=== PATIENT | female | born 1945 | race Caucasian/White ===

== ENCOUNTER 2016-09-06 07:59 | Day surgery (SDC) | payer OTHER ==
[~2016-09-06] VITALS: Ht 152.4 cm; Wt 70.9 kg
[2016-09-06] VITALS (10 sets, daily range): BP systolic 113–134; BP diastolic 63–89; PULSE 73–82; RESP 16–20; TEMP 97.7; O2SAT 92–97
[2016-09-06] MEDS ORDERED: SODIUM CHLOR 0.9% 1000 ML INJ 1,000 ML IV SCH (09:00)
[2016-09-06 09:13] LABS: BASOPHIL # 0.1 TH/MM3 (0-0.2); BASOPHIL % 1.5 % (0.0-2.0); EOSINOPHIL # 0.3 TH/MM3 (0-0.4); EOSINOPHIL % 5.7 % (0.0-4.0); HEMATOCRIT 39.6 % (35.0-46.0); HEMO FLAGS DIFF FINAL; LYMPH % 25.6 % (9.0-44.0); LYMPHOCYTE # 1.4 TH/MM3 (1.0-4.8); MEAN CORPUSCULAR HEMOGLOBIN 32.1 PG (27.0-34.0); MEAN CORPUSCULAR HGB CONC 33.5 % (32.0-36.0); MONO % 10.9 % (0.0-8.0); NEUT % 56.3 % (16.0-70.0); PLATELET COUNT 236 TH/MM3 (150-450); RED BLOOD COUNT 4.12 MIL/MM3 (4.00-5.30); RED CELL DISTRIBUTION WIDTH 13.7 % (11.6-17.2); WHITE BLOOD COUNT 5.4 TH/MM3 (4.0-11.0)
[2016-09-06 09:26] LABS: APTT (PATIENT) 27.3 SEC (24.3-30.1); PROTHROMBIN TIME - PATIENT 10.5 SEC (9.8-11.6)
[2016-09-06 09:34] LABS: BICARBONATE 29.5 MEQ/L (21.0-32.0); POTASSIUM 3.9 MEQ/L (3.5-5.1)
[2016-09-06] MEDS ORDERED: fentaNYL CITRATE 250 MCG/5 ML AMP ONE (10:08)
[2016-09-06] MEDS ORDERED: MIDAZOLAM HCL 5 MG/5 ML VIAL ONE (10:08)
[2016-09-06] MEDS ORDERED: ceFAZolin 2 GM PREMIX 50 ML ONE (10:15)
[2016-09-06] MEDS ORDERED: VERAPAMIL INJ 10 MG/4 ML VIAL ONE (10:29)
[2016-09-06] MEDS ORDERED: HEPARIN SODIUM - IV 10,000 UNITS/10 ML VIAL ONE (11:26)
--- NOTE | 2016-09-06 13:05 | PD.RAD ---
Post Procedure Progress Note Pre Procedure Diagnosis: (1) LLE AVF Post Procedure Diagnosis: (1) LLE AVF Procedure Date: Sep 06, 2016 Supervising Radiologist: Hua Winters Anesthesia: Local, Conscious Sedation Plan of Activity Patient to Unit: ROPU Patient Condition: Good See PACS Report for procedural detail/treatment Vascular-Arterial Procedure Procedure 1 Procedure Site: Left Leg Procedure(s): Angiogram, Embolization Access Access Site(s): Left Femoral Artery Closure Site(s): Left vascular closure device Findings: AV shunting without clear AVF. 2 main FIELD RESEARCH ASSISTANT branches accounting for significant shunting. Treament Area: Proximal FIELD RESEARCH ASSISTANT branch occluded with coils. 2nd branch could not be accessed. Plan Discuss endovenous ablation to occlude draining veins with patient.. Hua Winters MD Sep 06, 2016 13:05
[2016-09-06] MEDS ORDERED: IODIXANOL 320 MG/ML 50 ML VIAL (for RAD SPEC) I-ARTERIAL ONE (13:28)
--- NOTE | 2016-09-06 14:23 | RADRPT ---
EXAM DATE/TIME: 09/06/2016 09:42 [facility] COMPARISON: No previous studies available for comparison. INDICATIONS : Patient with a history of arterial venous shunting causing increase venous pressures and leg swelling of right leg. MEDICAL HISTORY : DVT Obesity SURGICAL HISTORY : Appendectomy Cholecystectomy Tonsillectomy ENCOUNTER: Initial ACUITY: 1 month PAIN SCORE: 2/10 LOCATION: Right calf FLUORO TIME: 37.4 minutes IMAGE SERIES: 16 ACCESS SITE: Left Femoral artery SEDATION TIME: 135 minutes CONTRAST: 1.) 110 cc Visipaque (iodixanol) MEDICATION(S): 1.) 3.5 mg midazolam (Versed) IV 2.) 175 mcg fentanyl (Sublimaze) IV DEVICE(S): 1.) Right [id number] X2 Extrasoft, & 2.5mmX3.5mm Extrasoft embolic coil(s) Posterior tibial artery tr unk 2.) Left common femoral artery 6FR Angio-Seal PROCEDURE : 1. Ultrasound-guided puncture of the access site. 2. Angiography of the access site prior to closure device. 3. Conscious sedation with continuous EKG and Oximetry monitoring. 4. Percutaneous closure of the access site. 5. Angiography of the right lower extremity 6. Angiography of the right posterior tibial artery 7. Endovascular coiling of right posterior tibial artery branch. The risks, benefits and alternatives to the procedure were explained and verbal and written consent w as obtained. The site was prepped in sterile fashion. Full sterile technique was used, including ca p, mask, sterile gloves and gown and a large sterile sheet. Hand hygiene and 2% chlorhexidine and/or betadine/alcohol prep was utilized per protocol for cutaneous antisepsis. The skin and subcutaneous tissues were infiltrated with local anesthetic solution. With ultrasound and fluoroscopic guidance the selected artery was punctured and a vascular sheath was placed. Angiography of the common femoral artery was performed for evaluation prior to percutaneous closure device placement. The initial sheath placed was removed and replaced with a 5 [place] 70 cm sheath. The sheath was advan stu over the aortoiliac rotation into the right popliteal artery. Angiography of the popliteal and infrapopliteal vessels demonstrates significant arterial venous shun ting with early draining veins noted during the arterial phase which originate from the posterior tib ial artery. 2 prominent branches from the posterior tibial artery were targeted for endovascular coiling. The mor e proximal branch was catheterized and a microcatheter advanced into the vessel. Endovascular coiling was then performed. Post coiling angiogram demonstrates significant decrease in shunting and early v enous opacification. The second branch targeted was in the mid to distal posterior tibial artery. Multiple attempt at acce ss were performed without success. This vessel was not treated. Hemostasis was obtained with the prescribed medicated closure device. Conscious sedation was perform ed with the prescribed dosages and duration as above in the presence of an independent trained radiol ogy nurse to assist in the monitoring of the patient. EKG and oximetry remained stable throughout th e procedure. CONCLUSION: Right lower extremity angiography demonstrates significant arterial venous shunting o riginating from the right posterior tibial artery and extending to the greater saphenous vein. One of 2 targeted vessels which appear to provide most of the shunting was embolized as described abo ve. The second vessel could not be catheterized due to its location and configuration. Patient tolerated procedure well. Plan: A venous ultrasound of the right lower extremity will be ordered for additional evaluation. Ins ufficiency, increased flow from AV shunting and mapping will be performed. Once this information is o btained a decision will be made for additional treatment with endovenous ablation. Hua Winters MD on September 06, 2016 at 14:09 Board Certified Radiologist. This report was verified electronically.
== END 2016-09-06 17:27 | disposition home or self-care (01) ==
LOC: HROP 07:59 → HRIP 08:00 → HROP 17:27
PROVIDERS: ATTEND Radiology Diagnostic Radiology
DX: I87.2 Venous insufficiency (chronic) (peripheral) (principal); E66.9 Obesity, unspecified; Z68.30 Body mass index [BMI] 30.0-30.9, adult
CPT/HCPCS: 36247; 37242; 75710; 75774; 76937; 80048; 85025; 85610; 85730; 99152; 99153; C1760; C1769; C1887; C1894; G0269; J0690; J1644; J2250; J3010; J7030; Q9967